=== PATIENT | female | born 1975 | race Caucasian/White ===

== ENCOUNTER → 2017-02-21 | Outpatient (CLI) | payer BC ==
[2017-02-21 17:42] LABS: BASOPHILS # (AUTO) 0.03 10*3/UL; BASOPHILS % (AUTO) 0.8 % (0-1); EOSINOPHILS # (AUTO) 0.36 10*3/UL; EOSINOPHILS % (AUTO) 9.5 % (0-8); HEMATOCRIT 39.8 % (37.0-47.0); LYMPHOCYTES # (AUTO) 1.08 10*3/uL; MEAN CORPUSCULAR HEMOGLOBIN 30.4 PG (27-31); MEAN CORPUSCULAR HGB CONC 32.7 g/dL (33-37); MEAN PLATELET VOLUME 9.1 FL (7.4-12.2); MONOCYTES # (AUTO) 0.47 10*3/UL (0.3-0.8); MONOCYTES % (AUTO) 12.4 % (5-15); NEUTROPHILS # (AUTO) 1.86 10*3/UL; NEUTROPHILS % (AUTO) 48.9 % (50-80); RED BLOOD COUNT 4.28 10^6/uL (4.20-5.40)
[2017-02-21 17:50] LABS: BLOOD UREA NITROGEN 14 mg/dL (7-22); CHOL/HDL RATIO 3.23 RATIO (0-4.0); EST GLOMERULAR FILTRATION > 60 (>60 ml/min/1.73m(2)); HDL CHOLESTEROL 65 mg/dL (40-150); SERUM ALBUMIN 4.2 g/dL (3.5-4.8); SERUM CHOLESTEROL 210 mg/dL (120-200)
[2017-02-21 17:57] LABS: PLATELET MORPHOLOGY COMMENT NORMAL MORPHOLOGY (NORM); RBC MORPHOLOGY COMMENT NORMAL MORPHOLOGY (NORM); WBC MORPHOLOGY COMMENT NORMAL MORPHOLOGY (NORM)
[2017-02-21 18:06] LABS: VITAMIN D 25-HYDROXY 37.6 NG/ML (30-100)
== END ==
LOC: LAB 09:32
PROVIDERS: ATTEND Nurse Practitioner Family
DX: E03.9 Hypothyroidism, unspecified (principal); N92.1 Excessive and frequent menstruation with irregular cycle; K90.0 Celiac disease
CPT/HCPCS: 80053; 80061; 82306; 84443; 85025

== ENCOUNTER → 2017-04-19 | Outpatient (CLI) | payer BC ==
[2017-04-19 17:16] LABS: SERUM ALBUMIN 4.3 g/dL (3.5-4.8)
[2017-04-19 18:26] LABS: FREE T4 (FREE THYROXINE) 1.26 ng/dL (0.93-1.71)
== END ==
LOC: LAB 11:59
PROVIDERS: ATTEND Nurse Practitioner Family
DX: E03.9 Hypothyroidism, unspecified (principal); R94.5 Abnormal results of liver function studies
CPT/HCPCS: 80076; 84439; 84443

== ENCOUNTER → 2017-06-12 | Outpatient (CLI) | payer BC ==
[2017-06-12 18:12] LABS: FREE T4 (FREE THYROXINE) 1.45 ng/dL (0.93-1.71)
== END ==
LOC: LAB 09:17
PROVIDERS: ATTEND Nurse Practitioner Family
DX: E03.9 Hypothyroidism, unspecified (principal); Z98.890 Other specified postprocedural states
CPT/HCPCS: 84146; 84439; 84443; 84481